=== PATIENT | female | born 1995 | race Caucasian/White ===

== ENCOUNTER → 2021-10-31 | Outpatient (CLI) | payer BC, SELFPAY ==
--- NOTE | 2021-10-31 15:54 | RAD_ITS ---
STUDY: X-RAY - RIGHT HAND REASON FOR EXAM: Female, 26 years old. CONTUSION TECHNIQUE: 3 view(s) of the hand. COMPARISON: None. FINDINGS: Please see the impression. RAD/Hand Min 3 Views IMPRESSION: Acute angulated and displaced fracture of the fifth metacarpal neck. No radiopaque foreign body in the right hand. Electronically Signed: Azam Peck MD at 16:29 EDT ,
== END | disposition home or self-care (01) ==
LOC: MTRAD 15:53
PROVIDERS: PCP Family Medicine; Referring Provider Family Medicine; Visit Provider Family Medicine
DX: S60.221A Contusion of right hand, initial encounter (principal)
CPT/HCPCS: 73130

== ENCOUNTER → 2023-05-07 | Outpatient (CLI) | payer BC, SELFPAY ==
--- NOTE | 2023-05-07 14:46 | RAD_ITS ---
INDICATION: pain EXAMINATION/TECHNIQUE: X-RAY - XR Spine Lumbar 2 or 3 Views COMPARISON: FINDINGS: The vertebral bodies are normal in height and configuration. No definite fracture demonstrated. No subluxation. Minimal curvature convex left. No paravertebral soft tissue mass identified. RAD/Lumbar Spine 2 or 3 Views IMPRESSION: No evidence of fracture or subluxation. Electronically Signed: Argentina Saab MD at 22:33 EST ,
== END | disposition home or self-care (01) ==
LOC: MTRAD 14:46
PROVIDERS: PCP Family Medicine; Referring Provider Family Medicine; Visit Provider Family Medicine
DX: M53.3 Sacrococcygeal disorders, not elsewhere classified (principal)
CPT/HCPCS: 72100

== ENCOUNTER 2024-09-15 05:39 | Day surgery (SDC) | payer BC, SELFPAY ==
[2024-09-15] VITALS (9 sets, daily range): BP systolic 108–121; BP diastolic 69–90; PULSE 59–94; RESP 16; TEMP 36.2; O2SAT 97–100; BMI 33.8
[2024-09-15] MEDS: 0.9% Normal Saline (1000mL) 1,000 ML 15 ML IV (06:30)
[2024-09-15 06:45] LABS: Internal QC Validated? YES +Cl - CLEAR BKGD; Pregnancy, Urine Negative Negative
--- NOTE | 2024-09-15 06:47 | HP.PCM.SX_ITS ---
HPI - General HPI Narrative PALAK SAAB, is a 29 F who presents for pilonidal cystectomy. The patient reports that the pilonidal cyst has returned. [facility] Medical History (Updated 09/10/24 @ 08:38 by Citlali Chang) Wears glasses Alcohol use Low iron Injury of head and neck Non-smoker Pilonidal cyst Allergy/AdvReac Type Severity Reaction Status Date / Time No Known Allergies Allergy Verified 09/15/24 06:18 Surgical History (Updated 09/10/24 @ 08:38 by Citlali Chang) History of bowel resection History of wisdom tooth extraction Social History Smoking Status: Never smoker alcohol intake: current substance use type: does not use Vital Signs Vital Signs Vital Signs: 09/15/24 06:19 09/15/24 06:19 Temperature 97.2 F L Temperature Source Temporal Pulse Rate 81 Respiratory Rate 16 Respiratory Pattern Normal Blood Pressure 108/69 Blood Pressure Mean 82 Blood Pressure Source Monitor Blood Pressure Position Sitting Blood Pressure Location Right Arm Pulse Ox 97 Oxygen Delivery Method Room Air Weight Weight: 216 lb 4.375 oz Body Mass Index (BMI) 33.8 Physical Exam Const oriented x3 Resp normal respiratory effort Cardio regular rate and regular rhythm GI soft to palpation and non-tender Results Lab / Micro Data Labs: Laboratory Results - last 24 hr 09/15/24 06:07: Urine Test Negative Assessment & Plan Assessment/Plan (1) Infected pilonidal cyst: PLAN: Patient had pilonidal cyst that recurred. Currently it has settled down some but she is still feeling it. There is still a bruise in the area and I will plan to incise that area and remove any pilonidal cyst that can be identified. I once again explained the risks of bleeding and infection. Patient understands all the risks and is willing to proceed. Jacob Cleaning MD Pager: [facility] [address] [place] [address], [address] [place] [address] Office:
--- NOTE | 2024-09-15 06:50 | PRE.ANES_ITS ---
ASA Classification* ASA Classification ASA Classification: 1 Assessment & Plan Anesthesia* Anesthesia Assessment Anesthesia Assessment: Discussed sedation and/or anesthesia options, risks, benefits, and alternatives with patient/parents/legal guardian/POA. Questions invited. The patient/parents/legal guardian/POA seems to understand and agrees to proceed with anesthesia plan. Reviewed the physical assessment, medical history, allergy history and patient home medications list prior to surgery/procedure/anesthetic and documented any changes. Performed airway and anesthesia risk assessments. Anesthesia Type Anesthesia Type: General History Source History Obtained from:: Patient and Chart Anesthesia Focused Assessment* Temperature: 97.2 F Pulse Rate: 81 Blood Pressure: 108/69 Respiratory Rate: 16 Pulse Ox: 97 Oxygen Delivery Method: Room Air Airway Assessment Mouth opens: >3 cm Mallampati Score: II Teeth Condition: Intact Neck Range of motion (ROM): Full ROM Focused Labs Anesthesia Preop lab: CBC CHEMISTRY COAG Urine Test Negative Negative 09/15/24 06:07 09/15/24 Pre-Assessment Diagnosis/Proposed Procedure Planned Operative Procedure(s): EXCISION PILONIDAL CYST Anesthesia History Anesthesia History - automation tender: Anesthesia History - automation tender Hx Hospitalization No 09/10/24 08:33 Any Problems With Anesthesia No 09/10/24 08:33 Cholinesterase deficiency No 09/10/24 08:33 You/Your Family Experience No 09/10/24 08:33 fever (hyperthermia) with Relationship Recent Exposure to Contagious No 09/15/24 06:19 Disease Does patient have nerve No 09/10/24 08:33 stimulator Patient instructed to have device shut off --Does patient have Pacemaker No 09/15/24 06:19 or ICD? When Was Last Pacemaker Check QUESTION #4 FULL TEXT: You/Your Family Experience fever (hyperthermia) with Anesthesia Last Oral Intake Last Oral intake: Last Oral Intake NPO since 21:00 09/15/24 06:19 Meds taken in AM with sips of water? Meds patient instructed to take am of surgery PONV PONV - automation tender: PONV - automation tender Female Yes 09/10/24 08:33 HX of Motion Sickness No 09/10/24 08:33 HX of N/V After Surgery No 09/10/24 08:33 Non-Smoker Yes 09/10/24 08:33 Duration of Surgery greater No 09/10/24 08:33 than 60 minutes Number of Risk Factors 2 09/10/24 08:33 PONV Score Moderate Risk 09/10/24 08:33 Height & Weight Height & Weight: Anesthesia: Height & Weight Height 5 ft 7 in 09/15/24 06:19 Weight: 98.1 kg 09/15/24 06:19 Body Mass Index (BMI) 33.8 09/15/24 06:19 Respiratory Assessment Respiratory Assessment - automation tender: Respiratory Tract Infection Hx - automation tender Hx Respiratory Tract Infection No 09/10/24 08:33 STOP Sleep Apnea STOP Sleep Apnea - automation tender: STOP Sleep Apnea - automation tender Hx Hypertension No 09/10/24 08:33 Hx Sleep Apnea No 09/10/24 08:33 CPAP BIPAP Do you snore loudly (louder No 09/10/24 08:33 than talking or can be heard Do you often feel tired/ No 09/10/24 08:33 fatigued/ sleepy during daytime? Has anyone observed you stop No 09/10/24 08:33 breathing during sleep? STOP Results Negative 09/10/24 08:33 QUESTION #5 FULL TEXT : Do you snore loudly (louder than talking or can be heard through closed doors)? 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 Specify any problems Hx of Preganancy in last 3 No 09/10/24 08:33 Months Nurse Filling Out Transfusion DSCHRIBER 09/10/24 08:33 & Questions: Date: 09/10/24 09/10/24 08:33 Time: 08:35 09/10/24 08:33 Patient unable to answer at this time (ie. confused, unrespo /Reproduction History /Reproductive History - automation tender: /Reproductive Hx- automation tender Hx Now No 09/10/24 08:33 Gestational Age (in weeks): EDC: Hx Hx Para Hx Section SAB No 09/10/24 08:33 Active Medications Active Medications: Current Medications Generic Name Dose Route Start Last Admin Trade Name Freq PRN Reason Stop Dose Admin Cefotetan Disodium 2 gm/ 100 mls @ 200 mls/hr 09/15/24 07:30 Sodium Chloride IV 09/15/24 07:59 PREOP ONE Sodium Chloride 1,000 mls @ 15 mls/hr 09/15/24 05:55 09/15/24 06:30 IV 15 mls/hr .Q48H TOMMY Administration PFSH Medical History Wears glasses Alcohol use Low iron Injury of head and neck Non-smoker Pilonidal cyst Allergy/AdvReac Type Severity Reaction Status Date / Time No Known Allergies Allergy Verified 09/15/24 06:18 Surgical History History of bowel resection History of wisdom tooth extraction Social History Smoking Status: Never smoker alcohol intake: current substance use type: does not use Review of Systems (Anesthesia) ROS Narrative System reviewed and no additional complaints, except as documented.
--- NOTE | 2024-09-15 07:30 | PILCYST_PTH ---
PATIENT: PALAK SAAB [place] [facility] [place][id number] AGE/SX: 29/F ROOM: RE09/15/[address]: Dr. Jacob Cleaning MD : 1995 BED: DIS: 09/15/2024 SPEC #: [id number] RECD: 09/15/24 11:36 STATUS: ANA RENora #: [id number] HONORIO: 09/15/24 07:[address]: Jacob Cleaning DEPT: SURGICAL PATHOLOGY RECD BY: Derrick Obregon ENTERED: 09/15/24 11:36 SP TYPE: Pilonidal OTHR DR: Dr. Wilner Knott MD Tissues: A - PILONIDAL TISSUE Procedures: Surgery Specimen Level III HEADER OPERATION: Excision, pilonidal cyst PRE-OP DIAGNOSIS: Infected pilonidal cyst TISSUE SUBMITTED: A- Pilonidal cyst MICROSCOPIC DIAGNOSIS A. Soft tissue, pilonidal cyst, excision: * Fibroadipose tissue with active chronic inflammation. MICROSCOPIC DESCRIPTION Slides are reviewed. GROSS DESCRIPTION A. Received in formalin in a container labeled with the patient's name, date of , and pilonidal cyst are multiple ward-yellow, irregular fragments of soft tissue measuring 2.8 x 2.3 x 1.0 cm in aggregate. No skin is identified. Serial sections reveal red-pink surfaces with a possible disrupted tract. No distinct hair is identified within the tract. Payroll Master sections submitted in A1. [facility] 09-15-2024 CPT:02477
[2024-09-15] MEDS: Cefotetan 2 GM in 0.9% Normal Saline (100mL MB+) 100 ML IV (07:35)
[2024-09-15] MEDS: Bupivacaine Mpf 0.5% 30 ML VIAL (07:54)
--- NOTE | 2024-09-15 08:03 | OP.PCM_ITS ---
Operative Report (Standard) Operative Information Date of Procedure: 09/15/24 Pre-Operative Diagnosis: Pilonidal cyst Post-Operative Diagnosis: Pilonidal cyst Surgery/Procedure Performed: Pilonidal cystectomy principal associate: No Type of Anesthesia: General/Regional RN Documented Start/Stop Times: Operation Date: 09/15/24 07:30 Case Time Into Pre-Op 09/15/24 05:50 Out of Pre-Op 09/15/24 07:24 Anesthesia Start 09/15/24 07:27 Into Room 09/15/24 07:27 Procedure Start 09/15/24 07:45 Procedure End 09/15/24 07:56 Procedure Start Time: 07:45 Procedure Stop Time: 07:58 Select all DRAINS/GRAFTS/IMPLANTS that apply: None Estimated Blood Loss: 2 Specimen collected: Yes Description of specimen(s) removed: Pilonidal cyst Description of surgery: Patient was brought back to the operating room and general anesthesia was induced. The patient was placed in prone jackknife position. The buttock area was prepped and draped in usual sterile fashion. The cyst appeared to be right of the midline. An area overlying this was marked and injected with local anesthetic. Incision was made in the cyst was readily apparent. Cyst was excised using electrocautery dissection and sent for pathology. Cavity was irrigated and suctioned dry. There was no further cysts. The subcutaneous tissue was closed with interrupted 3-0 Vicryl sutures and the skin was closed with interrupted 3-0 nylon sutures. Patient was awoken and brought to PACU in stable condition and tolerated the procedure well. Surgical Findings: Pilonidal cyst Complications Complications: No Admit VTE Documentation VTE Mechan Device Prophylaxis: SCD's
--- NOTE | 2024-09-15 08:06 | DCINST_ITS ---
Discharge Instructions Diet Discharge Diet: Light diet - advance as tolerated Activity Discharge Activity: May Not Drive (FOR 2-3 DAYS AND WHILE TAKING NARCOTICS) and May Shower Lifting Restrictions: 15 lbs for 2 weeks Dressing / Incision Call your doctor if your incision/area has: Continuous Slow Oozing, Sudden Increased Bleeding, Increased Pain/ Swelling, Increased Redness, Foul Smelling Discharge and Swelling at the incision site Call your doctor if you observe: Fever of 101 or Higher Change Dressing in: 1 day Cleanse incision/area with: Soap & Water Additional Dressing/Incision Instructions:: Alternate ibuprofen and Tylenol for pain control, oxycodone for breakthrough pain Follow Up Care Please Follow Up With: Jacob Cleaning MD When: Please call to schedule 2 week follow up appointment. [phone] Test Results: Test results from this visit will be discussed in further detail at your follow- up appointment, if applicable. Discharge Plan Admission Attending Provider: Jacob Cleaning Primary Care Provider: Wilner Knott Instructions Print Language: Latvian Discharge Orders/Prescriptions Prescriptions: New oxycodone 5 mg Tablet 5 - 10 mg PO Q4H PRN PRN (Reason: Pain Score 4-10) 5 Days Qty: 14 0RF Referrals / Follow Up: Violette Holt MD [Med Staff - Tobacco Warehouse Agent] - Disposition Disposition (needs filled in before D/C Order can be placed): Home, Self Care
--- NOTE | 2024-09-15 08:20 | PCM.POST.ANE ---
Anesthesia: Postop Eval I Current Vital Signs Temperature: 97.1 F Pulse Rate: 94 Blood Pressure: 121/81 Respiratory Rate: 16 Pulse Ox: 100 Oxygen Delivery Method: Simple Mask Oxygen Flow Rate (L/min): 6 Assessment Airway patent: Yes Spontaneous unlabored respirations: Yes Mental status: Awake and Calm nausea: No Vomiting: No Anesthesia Complication: No Fluid Hydration Crystalloid volume administer (ml): 400 Total IV fluid infused: 400 Progress Note Anesthesia document: Postop Eval 1 completed: Yes
--- NOTE | 2024-09-15 08:55 | POSTOPAN2_ITS ---
Anesthesia Postop Eval I Sum Postop Eval Completion status Anesthesia document: Postop Eval 1 completed: Yes Anesthesia Postop Eval I Summary Anesthesia Postop Eval I Summary: Anesthesia Postop Eval I: Assessment Summary Airway patent Yes 09/15/24 08:20 BRIDGE LEVERMAN.[email or web address] Spontaneous unlabored Yes 09/15/24 08:20 BRIDGE LEVERMAN.STARLA respirations Mental status Awake,Calm 09/15/24 08:20 BRIDGE LEVERMAN.SKOBY nausea No 09/15/24 08:20 BRIDGE LEVERMAN.SKOBY Vomiting No 09/15/24 08:20 BRIDGE LEVERMAN.YASMINOBSteve Anesthesia Postop Eval I: Fluid Summary Crystalloid volume administer 400 09/15/24 08:20 BRIDGE LEVERMAN.SKOBY (ml) Colloids volume administered ( ml) Blood Product volume administered (ml) Total IV fluid infused 400 09/15/24 08:20 BRIDGE LEVERMAN.YASMINOBSteve Anesthesia Postop Eval I: Summary Notes Anesthesia Complication No 09/15/24 08:20 BRIDGE LEVERMAN.YASMINOBSteve Anesthesia Complication Comment: Post-operative progress note Anesthesia: Postop Eval II Evaluation Mental status: Awake and Calm Pain Level: 2 nausea: No Vomiting: No Complications Anesthesia Complication: No
--- NOTE | 2024-09-15 08:55 | PCM.POSTANE2 ---
Anesthesia Postop Eval I Sum Postop Eval Completion status Anesthesia document: Postop Eval 1 completed: Yes Anesthesia Postop Eval I Summary Anesthesia Postop Eval I Summary: Anesthesia Postop Eval I: Assessment Summary Airway patent Yes 09/15/24 08:20 OPERATORS SCHOOL MANAGER.SKOBY Spontaneous unlabored Yes 09/15/24 08:20 OPERATORS SCHOOL MANAGER.STARLA respirations Mental status Awake,Calm 09/15/24 08:20 OPERATORS SCHOOL MANAGER.SKOBY nausea No 09/15/24 08:20 OPERATORS SCHOOL MANAGER.SKOBY Vomiting No 09/15/24 08:20 OPERATORS SCHOOL MANAGER.YASMINOBSteve Anesthesia Postop Eval I: Fluid Summary Crystalloid volume administer 400 09/15/24 08:20 OPERATORS SCHOOL MANAGER.SKOBY (ml) Colloids volume administered ( ml) Blood Product volume administered (ml) Total IV fluid infused 400 09/15/24 08:20 OPERATORS SCHOOL MANAGER.YASMINOBSteve Anesthesia Postop Eval I: Summary Notes Anesthesia Complication No 09/15/24 08:20 OPERATORS SCHOOL MANAGER.YASMINOBSteve Anesthesia Complication Comment: Post-operative progress note Anesthesia: Postop Eval II Evaluation Mental status: Awake and Calm Pain Level: 2 nausea: No Vomiting: No Complications Anesthesia Complication: No
== END 2024-09-15 09:22 | disposition home or self-care (01) ==
LOC: SDC 05:39 → AC 05:41
PROVIDERS: Anesthesiology; PCP Family Medicine; Referring Provider Surgery; Visit Provider Surgery
PROC: (CPT 11771; principal; 2024-09-15 07:15)
DX: L05.91 Pilonidal cyst without abscess (principal)
CPT/HCPCS: 11771; 81025; 88304; J2405